=== PATIENT | female | born 1970 | race Caucasian/White ===

== ENCOUNTER 2024-08-08 09:49 | Observation (INO) | payer BC ==
[2024-08-02 15:45] LABS: BASOPHILS # (AUTO) 0.06 K/uL (0.00-0.20); BASOPHILS % (AUTO) 0.5 % (0.0-5.0); EOSINOPHILS # (AUTO) 0.12 K/uL (0.00-0.70); HEMATOCRIT 40.9 % (36-48); IMMATURE GRANULOCYTE ABSOLUTE 0.03 K/uL (0-1); LYMPHOCYTES # (AUTO) 3.8 K/uL (1.0-4.8); LYMPHOCYTES % (AUTO) 31.1 % (21.0-51.0); MEAN CORPUSCULAR HGB CONC 33.5 g/dL (32.0-36.0); MEAN CORPUSCULAR VOLUME 89.7 fL (79-99); MONOCYTES # (AUTO) 0.9 K/uL (0.1-1.0); NEUTROPHILS # (AUTO) 7.3 K/uL (1.8-7.7); NEUTROPHILS % (AUTO) 60.2 % (40.0-77.0); PLATELET COUNT (AUTO) 253 K/uL (130-400); RED BLOOD CELL COUNT(AUTO) 4.56 MIL/uL (4.00-5.50); RED CELL DISTRIBUTION WIDTH 12.6 % (11.0-15.5); WHITE BLOOD COUNT (AUTO) 12.1 K/uL (4.8-10.8)
[2024-08-02 15:46] LABS: APPEARANCE,URINE CLEAR (CLEAR); BILIRUBIN,URINE NEGATIVE (NEGATIVE); COLOR,URINE LIGHT-YELLOW (YELLOW); GLUCOSE, URINE (UA) NEGATIVE (NEGATIVE); KETONES,URINE NEGATIVE (NEGATIVE); LEUKOCYTE ESTERASE ,URINE 75 Leu/uL (NEGATIVE); NITRATE,URINE NEGATIVE (NEGATIVE); OCCULT BLOOD,URINE NEGATIVE (NEGATIVE); PROTEIN,URINE NEGATIVE (NEGATIVE); UROBILINOGEN,URINE 0.2 mg/dL (0.2-1.0)
[2024-08-02 15:49] LABS: ADD UA MICROSCOPIC YES
[2024-08-02 15:50] VITALS: BP 176/78; PULSE 68; RESP 17; TEMP 97.4
[2024-08-02 15:50] LABS: BACTERIA,URINE FEW /HPF (None Seen); MUCUS,URINE RARE LPF (None Seen); RBC,URINE 0-1 /HPF (0-1); SQUAMOUS EPITHELIAL CELL,UR FEW /HPF (0-2)
--- NOTE | 2024-08-02 16:15 | NUR ---
RE: IS INITIAL IS INITIAL TEACHING DONE BY RT PB DURING PREOP.
--- NOTE | 2024-08-07 09:11 | NUR ---
RE: LABS REPORTED UA/URINE CX RESULTS AND WBC 12.[address] MONAHAN. NO NEW ORDERS, PATIENT WILL BE RECEIVING ANCEF PATIENT ACCOUNTS SPECIALIST TO OR.
[2024-08-08] VITALS (26 sets, daily range): BP systolic 127–169; BP diastolic 66–86; PULSE 68–100; RESP 15–20; TEMP 97.2–99.1; O2SAT 98
[~2024-08-08] VITALS: Ht 160 cm; Wt 137.0 kg
[~2024-08-08 09:49] MED LIST: ATOR10 PO; NAPR220T57 PO; PARO-37 PO; TIRZ2.5P SQ; VITAD50000 PO
[2024-08-08] MEDS: LACTATED RINGERS 1000ML 1,000 ML IV ONE (10:33)
[2024-08-08] MEDS: ceFAZolin SODIUM 1 GM VIAL ONE (10:34)
[2024-08-08] MEDS: ceFAZolin SODIUM 2 GM VIAL ONE (10:35)
[2024-08-08] MEDS ORDERED: ROPivacaine 0.5% 5MG/ML 30ML ONE (11:01)
[2024-08-08] MEDS ORDERED: acetaMINOPHEN 100 ML ONE (11:02)
[2024-08-08] MEDS: FAMOTIDINE 20MG VIAL IV ONE (11:07)
[2024-08-08] MEDS ORDERED: VANCOMYCIN 500MG+NS 100ML 100 ML IV ONE (11:31)
[2024-08-08] MEDS ORDERED: ceFAZolin SODIUM 1 GM VIAL ONE (11:31)
[2024-08-08] MEDS ORDERED: dexaMETHasone SOD PHOSPHATE 10MG/ML 1ML VIAL ONE (12:40)
[2024-08-08] MEDS ORDERED: ondanSETRON 4MG INJ ONE (12:40)
[2024-08-08] MEDS: TRANEXAMIC ACID 1000MG/10ML ONE ×2 (12:45→15:45)
[2024-08-08] MEDS ORDERED: FENTanyl CITRate PF 50 MCG/1 ML 2ML VIAL ONE ×2 (14:00→15:12)
[2024-08-08] MEDS ORDERED: traMADol HCL 50 MG TABLET PO PRN (15:00)
[2024-08-08] MEDS ORDERED: CALCIUM CARB 500MG PO PRN (15:00)
[2024-08-08] MEDS ORDERED: ondanSETRON 4MG INJ IVP PRN (15:00)
[2024-08-08] MEDS ORDERED: PoTASSium chl 10% ELIXIR 20MEQ 20 MEQ/15 ML UDCUP PO PRN (15:00)
[2024-08-08] MEDS ORDERED: FERROUS FUMARATE 324 MG TABLET PO PRN (15:00)
[2024-08-08] MEDS: 0.9%NACL 1000ML 1,000 ML IV SCH (15:00)
[2024-08-08] MEDS ORDERED: PoTASSium chloRIDE 20MEQ/100ML 100 ML IV PRN (15:00)
[2024-08-08] MEDS ORDERED: DiphenhydrAMINE HCL 50 MG/ML VIAL IVP PRN (15:00)
[2024-08-08] MEDS ORDERED: TEMAZepam 15 MG CAPSULE PO PRN (15:00)
[2024-08-08] MEDS ORDERED: PoTASSium chloRIDE 20MEQ ER 20 MEQ ERTAB PO PRN (15:00)
[2024-08-08] MEDS ORDERED: NEOSTIGMINE METHYLSULFATE 1MG/ML IV ONE (15:12)
[2024-08-08] MEDS ORDERED: GLYCOPYRROLATE 0.2 MG/ML 5 ML VIAL ONE (15:12)
--- NOTE | 2024-08-08 15:12 | OP ---
Operative Note: DATE OF PROCEDURE: 08/08/24 SURGEON: JAZMIN MONAHAN MD UTILITY SERVICE WORKER: [SWAPNIL ECHEVERRIA CFA] ANESTHESIA: [General anesthesia plus regional block] ANESTHESIOLOGIST/WORK COUNSELOR: [Racheal Jones] PREOPERATIVE DIAGNOSIS: [Right knee osteoarthritis] POSTOPERATIVE DIAGNOSIS: [Right knee osteoarthritis] IMPLANTS: [Biomet vanguard. Femur size 65 right PS. Tibia 75 fixed cruciate. Tibial liner size 14 x 70 1/75 PS plus. Patella size 34 x 9 asymmetric] PROCEDURE: [Right total knee arthroplasty] ESTIMATED BLOOD LOSS: [100 mL] INDICATIONS: [54-year-old female with history of pain to the right knee secondary to severe osteoarthritis that has been treated conservatively with a longer provided any relief of the pain. The patient is being admitted for a right total knee arthroplasty, procedure that she understood, risks involved, benefits and possible complications and agreed to sign the consent form] DESCRIPTION OF PROCEDURE: [After adequate general anesthesia was achieved and regional block obtained the right lower extremity was prepped and draped in the usual manner previous placement of the tourniquet in the proximal thigh. The extremity was then elevated and exsanguinated with an Esmarch bandage and the tourniquet inflated to 300 mmHg the Esmarch band been then removed. With the knee in flexion a longitudinal incision was then made in the anterior aspect through the skin followed by dissection of the subcutaneous tissue. A bone infusion needle was then inserted just medial to the tibial tuberosity and through this needle we injected a solution of 50 mL of normal saline mixed with 500 mg of vancomycin into the tibial metaphysis. After the bone infusion needle was removed, a paramedian approach was then made with the Bovie cautery cutting through the quadriceps tendon, medial patellar retinaculum and patellar tendon retinaculum. The retropatellar tendon fat was then excised and the soft tissue elements of the tibia were elevated subperiosteally and retractors were applied medially and laterally. The anterior and posterior cruciate ligaments were resected. With the use of a drill a starting hole was made in the distal femur entering the intramedullary canal and then after removal of the drill an intramedullary guide was inserted with a 5 degree valgus block that touched the distal femur and to this the distal femoral cutting guide was then applied anteriorly and was secured to the distal femur with the use of pins. The intramedullary guide was then removed and with the use of the oscillating saw we proceeded to resect the distal femur removing the fragments and the guide. The femoral sizer was then applied distally and drill holes were made removing the sizer and the 4-in-1 cutting block was then inserted and the anterior, posterior and chamfer cuts were made removing the fragments and the block. The posterior cruciate ligament retractor was then inserted posterior to the tibia and this was brought forward proceeding then to apply the external tibial alignment guide and secured the proximal cutting guide to the tibia with the use of pins. With the use of the oscillating saw the proximal cut to the tibia tibia was made. The bone fragment was removed and the trial tibia plate was chosen. At this point the menisci were removed sharply and with the use of the curved osteotome the posterior osteophytes of the femur were removed. The PS cutting guide was then inserted and the intercondylar cut was made removing the fragment and the guide. The trial components were then inserted at the femur and tibia with a trial tibial liner bringing the knee into extension noticing that the patient had a very stable knee in flexion, extension and with valgus and varus stress. The knee was maintained in extension and the patella was then addressed proceeding to measure its thickness and then with the use of the oscillating saw we removed 9 mm from the articular surface and restored the height with application of a trial component after 3 peg holes were made. The patellofemoral ligament was removed and then the patellofemoral tracking was checked noticing to be tracking is slightly lateral and for this reason a l ateral retinacular release was performed correcting the alignment back to normal. At this moment all the components were removed, the tibia after the metaphyseal defect was created and while cement was being mixed on the back table we proceeded to irrigate the joint with antibiotic solution and then cover the entry to the femoral canal with a bone plug. Once the cement was ready we proceeded to apply it first to the tibia surface inserting the final component and then to the femoral surface and inserted the final component removing the excess cement and then applying a trial liner bringing the knee into extension for compression. Then we proceeded to irrigate the patella surface and dried it applying then bone cement and the final patellar component was inserted and was secured with application of a clamp. The joint was irrigated with a warm diluted Betadine solution while the cement dried followed by irrigation with antibiotic solution. The trial liner was removed as well as the patellar clamp and we proceeded then to irrigate the posterior aspect of the joint to remove all the remaining debris and the final tibial liner was inserted and locked against the tibia . The range of motion was checked and noticed to be adequate with full extension and flexion, no laxity in valgus or varus stress and with adequate patellofemoral tracking. The patient had no anterior or posterior drawer. After further irrigation the tourniquet was then deflated and this was followed by hemostasis. The wound was then closed with approximation of the quadriceps tendon, patellar retinaculum and patellar tendon retinaculum with #1 Vicryl crossed stitches alternating with #1 Ethibond stitches, and closure of the subcutaneous tissue with 2-0 Monocryl inverted stitches and the skin was closed with 3-0 Monocryl subcuticularly. The wound was covered with a suction dressing followed by application of an Marques bandage for compression and the drapes were then removed transferring the patient to the hospital bed and taken to recovery room for follow-up by anesthesia. There were no complications during the procedure.] JAZMIN MONAHAN MD Aug 08, 2024 15:12
[2024-08-08] MEDS: acetaMINOPHEN 500 MG TABLET PO SCH (17:57)
[2024-08-08] MEDS: INSULIN humuLIN R 100 UNIT/ML 3ML SQ SCH (18:10)
[2024-08-08] MEDS ORDERED: ceFAZolin SODIUM 1 GM VIAL IVP SCH (20:00)
[2024-08-08] MEDS: WATER IVPB SCH (20:26)
[2024-08-08] MEDS: DEXTROSE 5% IVPB SCH (20:26)
[2024-08-08] MEDS: CEFAZOLIN SODIUM IVPB SCH (20:26)
[2024-08-08] MEDS: atorVAStatin 20 MG TABLET PO SCH (20:26)
[2024-08-08] MEDS: FAMOTIDINE 20MG TAB PO SCH (20:26)
[2024-08-08] MEDS: OXYcodONE HCL 5 MG TAB PO PRN (20:27)
[2024-08-08] MEDS ORDERED: COMPOUND IV REFRIGERATED 1 EACH IVSOLN MISC PRN (20:30)
[2024-08-09 03:51] VITALS: BP 137/68; PULSE 85; RESP 16; TEMP 98.2
[2024-08-09 04:38] LABS: HEMATOCRIT 35.9 % (36-48); MEAN CORPUSCULAR HEMOGLOBIN 30.3 pg (27.0-33.0); MEAN CORPUSCULAR HGB CONC 33.4 g/dL (32.0-36.0); MEAN CORPUSCULAR VOLUME 90.7 fL (79-99); RED BLOOD CELL COUNT(AUTO) 3.96 MIL/uL (4.00-5.50); RED CELL DISTRIBUTION WIDTH 12.2 % (11.0-15.5); WHITE BLOOD COUNT (AUTO) 11.8 K/uL (4.8-10.8)
[2024-08-09 04:56] LABS: CREATININE 0.5 mg/dL (0.5-1.0); POTASSIUM 4.2 mmol/L (3.5-5.1)
[2024-08-09] MEDS: polyETHYLene GLYCol 3350 17 GM POWD.PACK PO SCH (07:57)
[2024-08-09] MEDS: PARoxetine HCL 20 MG TABLET PO SCH (07:57)
[2024-08-09] MEDS: APIXaban 2.5 MG TABLET PO SCH (07:57)
[2024-08-09] MEDS: cePHALexin 500 MG CAPSULE PO SCH (07:57)
[2024-08-09 08:00] VITALS: O2SAT 100
--- NOTE | 2024-08-09 08:02 | PN ---
Ortho postop day one. This morning the patient is awake alert and oriented. Reporting adequate pain control. No acute distress. Vital signs have been stable. Afebrile. Laboratory results reviewed. Voiding on her own without difficulty. Operative findings discussed with the patient. Marques bandage his already been removed. The dressing is intact. Dion dressing is flashing green. Gastrocnemius soft nontender. Negative Homans. Bilateral SCD stockings currently present since she is in bed however I have indicated to her that I would like for her to spend more time out of bed and she understands and agrees. She has been ambulating in the confines of her room and is anticipating further physical therapy this morning. Anticipated discharge goal is home health/PT. Assessment: Status post right total knee arthroplasty. Plan: Continue with Dr. Lau TKA protocol and discharge planning Vitals/Labs Vital Signs Date Time Temp Pulse Resp B/P (MAP) Pulse Ox O2 Delivery O2 Flow Rate FiO2 08/09/24 03:51 98.2 85 16 137/68 92 Room Air 08/08/24 20:00 0 21 Laboratory Tests 08/09/24 04:19 Medications Current Medications Cefazolin Sodium 1 gm STK-MED ONCE .ROUTE Last administered on 08/08/24at 12:35; Start 08/08/24 at 09:38; Stop 08/08/24 at 09:38; Status DC Cefazolin Sodium 2 gm STK-MED ONCE .ROUTE Last administered on 08/08/24at 12:35; Start 08/08/24 at 09:38; Stop 08/08/24 at 09:38; Status DC Lactated Ringer's 1,000 ml @ As Directed STK-MED ONCE IV Last administered on 08/08/24at 10:33; Start 08/08/24 at 09:38; Stop 08/08/24 at 09:38; Status DC Ropivacaine 150 mg STK-MED ONCE .ROUTE; Start 08/08/24 at 11:01; Stop 08/08/24 at 11:02; Status DC Acetaminophen 100 ml @ As Directed STK-MED ONCE .ROUTE; Start 08/08/24 at 11:02; Stop 08/08/24 at 11:02; Status DC Famotidine 20 mg STK-MED ONCE IV; Start 08/08/24 at 11:07; Stop 08/08/24 at 11:07; Status DC Tranexamic Acid 1,000 mg STK-MED ONCE .ROUTE Last administered on 08/08/24at 12:45; Start 08/08/24 at 11:29; Stop 08/08/24 at 11:29; Status DC Vancomycin HCl 100 ml @ As Directed STK-MED ONCE IV; Start 08/08/24 at 11:31; Stop 08/08/24 at 11:31; Status DC Cefazolin Sodium 1 gm STK-MED ONCE .ROUTE; Start 08/08/24 at 11:31; Stop 08/08/24 at 11:32; Status DC Dexamethasone Sodium Phosphate 10 mg STK-MED ONCE .ROUTE; Start 08/08/24 at 12:40; Stop 08/08/24 at 12:40; Status DC Ondansetron HCl 4 mg STK-MED ONCE .ROUTE; Start 08/08/24 at 12:40; Stop 08/08/24 at 12:40; Status DC Fentanyl Citrate 100 mcg STK-MED ONCE .ROUTE; Start 08/08/24 at 14:00; Stop 08/08/24 at 14:00; Status DC Sodium Chloride 1,000 ml @ 100 mls/hr Q10H IV Last administered on 08/08/24at 15:00; Start 08/08/24 at 15:00; Stop 08/09/24 at 14:59 Polyethylene Glycol 17 gm DAILY PO; Start 08/09/24 at 09:00; Stop 09/08/24 at 08:59 Bisacodyl 10 mg DAILY PRN RC; Start 08/11/24 at 15:00; Stop 09/10/24 at 14:59 Ketorolac Tromethamine 15 mg Q6H PRN IV; Start 08/08/24 at 15:00; Stop 08/13/24 at 14:59 Famotidine 20 mg BID PO Last administered on 08/08/24at 20:26; Start 08/08/24 at 21:00; Stop 09/07/24 at 20:59 Ferrous Fumarate 324 mg DAILY PRN PO; Start 08/08/24 at 15:00; Stop 09/07/24 at 14:59 Temazepam 15 mg HS PRN PO; Start 08/08/24 at 15:00; Stop 09/07/24 at 14:59 Ondansetron HCl 4 mg Q6H PRN IVP; Start 08/08/24 at 15:00; Stop 09/07/24 at 14:59 Calcium Carbonate 500 mg Q12H PRN PO; Start 08/08/24 at 15:00; Stop 09/07/24 at 14:59 Diphenhydramine HCl 25 mg Q6H PRN IVP; Start 08/08/24 at 15:00; Stop 09/07/24 at 14:59 Insulin Human Regular INSULIN SLIDING SCAL... ACHS SQ Last administered on 08/08/24at 20:37; Start 08/08/24 at 16:30; Stop 09/07/24 at 16:29 Cefazolin Sodium 3 gm Q8H IVP; Start 08/08/24 at 20:00; Stop 08/08/24 at 15:18; Status DC Potassium Chloride 100 ml @ 100 mls/hr AD PRN IV; Start 08/08/24 at 15:00; Stop 09/07/24 at 14:59 Potassium Chloride 20 meq AD PRN PO; Start 08/08/24 at 15:00; Stop 09/07/24 at 14:59 Potassium Chloride 20 meq AD PRN PO; Start 08/08/24 at 15:00; Stop 09/07/24 at 14:59 Oxycodone HCl 5 mg Q4H PRN PO Last administered on 08/08/24at 20:27; Start 08/08/24 at 15:00; Stop 08/15/24 at 14:59 Oxycodone HCl 10 mg Q4H PRN PO; Start 08/08/24 at 15:00; Stop 08/15/24 at 14:59 Tramadol HCl 50 mg Q6H PRN PO; Start 08/08/24 at 15:00; Stop 08/13/24 at 14:59 Acetaminophen 1,000 mg Q8H PO Last administered on 08/09/24at 06:34; Start 08/08/24 at 15:00; Stop 09/07/24 at 14:59 Cephalexin 500 mg Q8H PO; Start 08/09/24 at 08:00; Stop 08/19/24 at 08:00 Apixaban 2.5 mg BID PO; Start 08/09/24 at 09:00; Stop 09/08/24 at 08:59 Glycopyrrolate 1 mg STK-MED ONCE .ROUTE; Start 08/08/24 at 15:12; Stop 08/08/24 at 15:17; Status DC Neostigmine Methylsulfate 10 mg STK-MED ONCE IV; Start 08/08/24 at 15:12; Stop 08/08/24 at 15:17; Status DC Fentanyl Citrate 100 mcg STK-MED ONCE .ROUTE; Start 08/08/24 at 15:12; Stop 08/08/24 at 15:17; Status DC Cefazolin Sodium 3 gm/Dextrose 100 ml @ 100 mls/hr Q8H IVPB Last administered on 08/09/24at 03:22; Start 08/08/24 at 20:00; Stop 08/09/24 at 04:59; Status DC Tranexamic Acid 1,000 mg STK-MED ONCE .ROUTE Last administered on 08/08/24at 15:45; Start 08/08/24 at 15:31; Stop 08/08/24 at 15:32; Status DC Atorvastatin Calcium 20 mg HS PO Last administered on 08/08/24at 20:26; Start 08/08/24 at 21:00; Stop 09/07/24 at 20:59 Paroxetine HCl 20 mg DAILY PO; Start 08/09/24 at 09:00; Stop 09/08/24 at 08:59 Miscellaneous Medication 50,000 units QWEEK PO; Start 08/15/24 at 09:00; Stop 08/08/24 at 19:30; Status DC Ergocalciferol 50,000 unit QWEEK PO; Start 08/15/24 at 09:00; Stop 09/14/24 at 08:59 JONNA BULLOCK NP Aug 09, 2024 08:02
[2024-08-09] MEDS: OXYcodONE HCL 5 MG TAB PO PRN (09:56)
--- NOTE | 2024-08-09 11:15 | NUR ---
[facility] CM MET WITH PT THIS MORNING, INITIAL ASSESSMENT DONE. PATIENT IS INDEPENDENT PRIOR TO SURGERY, LIVES AT HOME WITH HER PARENTS. PATIENT HAS A WALKER, ROLLATOR WALKER, CANE, BEDSIDE COMMODE AT HOME. DENIES ANY OTHER EQUIPMENT/SERVICES. FEELS SAFE TO GO BACK HOME, STILL DRIVE, ARRANGES OWN NEEDS, PARENTS ABLE TO ASSIST WITH TRANSPORTATION NECESSARY. DISCUSSED MD RECOMMENDATIONS FOR HOME W/HH, PT ALREADY HAS A WALKER AT HOME, PT AGREEABLE, CONSENT SIGNED [facility]. [facility] HOME W/HH ONCE APPROVED. CM TO CONTINUE TO FOLLOW UP. Addendum: 08/09/24 at 1437 by GIO AJ LVN Amended: Links added.
[2024-08-09 12:00] VITALS: BP 127/65; PULSE 80; RESP 18; TEMP 98.1
[2024-08-09] MEDS: ketOROlac 15MG/ML VIAL (15MG/ML) IV PRN (13:02)
[2024-08-09 16:00] VITALS: BP 114/58; PULSE 72; RESP 18; TEMP 98.2
[2024-08-09] MEDS ORDERED: HYDR-4060 PO (17:54)
[2024-08-09] MEDS ORDERED: APIX2.5T PO (17:54)
--- NOTE | 2024-08-09 19:22 | NUR ---
note pt dc at this time, report given to home health, pt iv removed, educated pt on dc instructions
[2024-08-11] MEDS ORDERED: BisaCODYL 10 MG SUPP.RECT RC PRN (15:00)
[2024-08-15] MEDS ORDERED: NON-FORMULARY MEDICATION 1 EACH (Cholecalciferol (Vitamin D3) 50,000 UNITS) PO SCH (09:00)
[2024-08-15] MEDS ORDERED: ERGOCALCIFEROL (VITAMIN D2) 50,000 UNIT CAPSULE PO SCH (09:00)
== END 2024-08-09 21:12 | disposition home or self-care (01) ==
LOC: DAH 09:49 → DAHIP 09:50 → 4BH 16:30
PROVIDERS: ADMIT Orthopaedic Surgery; ATTEND Orthopaedic Surgery
DX: M17.11 Unilateral primary osteoarthritis, right knee (principal); G89.18 Other acute postprocedural pain; Z79.899 Other long term (current) drug therapy; Z90.710 Acquired absence of both cervix and uterus; Z88.1 Allergy status to other antibiotic agents
CPT/HCPCS: 85025; 87086 ×2; 87186; 81001; 36415 ×2; 87641; 27447; 96376; 64447; 82948 ×5; 88311; 88305; 97161; 97116 ×3; 97530 ×5; 96365; 96375; 80048; 85027; G0378 ×29; A4663; J7120 ×2; A4600; J3490 ×4; J3010 ×2; J0690 ×4; J1100; J7060; J2405; J2710; J2795; J3370; J1815 ×2; A9272; A4649 ×3; A4930 ×3; C1713; C1776; A5120; A4215; A4223 ×2; A4222; A4221; A4216; J1885